=== PATIENT | female | born 1980 | race Caucasian/White ===

== ENCOUNTER 2021-06-15 14:42 | Inpatient (IN) | payer OTHER, SELFPAY ==
[2021-06-15 16:44] VITALS: BP 124/81; PULSE 92; RESP 16; TEMP 36.1; O2SAT 97
--- NOTE | 2021-06-15 17:06 | P.CNHOSGPS_ITS ---
History of Present Illness Data of Consult Service Date: 06/15/21 Requesting physician: [facility] Primary Care Provider: Jacqueline Girard NP HPI Reason for consult: medical H+P 40yo F with no chronic medical conditions admitted to . She denies any history of medical conditions. Not vaccinated against COVID-19. She has absolutely no medical complaints- no fever, chills, chest pain, dyspnea, cough, or headache. PMHx: no chronic conditions PSHx: no surgeries FHx: no cardiac conditions or DM SHx: denies ongoing substance abuse, sober for past 10 yr Review of Systems Review of Systems: Yes all other systems are reviewed and are negative (except psychiatric symptoms) [facility] Social History Household Members: Spouse Housing: House Do you presently have visiting nurse or other home services: No Patient Tobacco Use Status: Never used Tobacco Smoked in Last 30 Days: No e-Cigarette/Vaping Use: Never Used Patient Interested in Nicotine Replacement: No Patient Given Instructions on How to Stop Smoking: No Second Hand Smoke Exposure: No Use of substances other than those prescribed or required for medical reasons: No Currently Displaying Signs/Symptoms of Drug Intoxication Withdrawal: No Any prior treatment program specific to substance use: No Have you been hit, kicked, punched, or otherwise hurt by someone within the past year? If so, by whom?: No Do you feel safe in your current relationship?: Yes Is there a partner from a previous relationship who is making you feel unsafe now?: No Are you made to feel afraid or neglected: No Spiritual Healthcare Practices: I believe in higher power Episcopal Healthcare Practices: christianity Cultural Healthcare Practices: n/a Advance Directives: No Advance Directives Information Provided: No Advance Directives on File: No Do you have thoughts of harming others: None Do you have a plan to hurt others: No Plan Recently lost weight without trying: No Eating poorly because of decreased appetite: No Nutrition Risks: No Nutritional Risk Patient : No : No Poor oral hygiene: No Meds Allergies Allergy/AdvReac Type Severity Reaction Status Date / Time No Known Allergies Allergy Verified 06/15/21 15:36 Active Medications: Current Medications Generic Name Dose Route Start Last Admin Trade Name Freq PRN Reason Stop Dose Admin Acetaminophen 650 mg 06/15/21 15:36 Acetaminophen 325 Mg Tablet PO Q6H PRN Headache/Pain Mild Scale (1-3) Al Hydroxide/Mg Hydroxide 30 ml 06/15/21 15:36 Magnesium Hydrox/Alum Hydrox 30 Ml Oral.Susp PO Q6H PRN Heartburn/Nausea Magnesium Hydroxide 30 ml 06/15/21 15:36 Milk Of Magnesia 30 Ml Oral.Susp PO DAILY PRN Constipation Assessment and Plan (1) Medical history non-contributory: Status: Acute 40yo F admitted to . She has no chronic medical conditions. Thank you for this consult. We are signing off. Please call if any acute medical issues arise. Physical Exam Vital Signs: Last Vital Signs Temp 96.9 F 06/15/21 16:44 Pulse 92 06/15/21 16:44 Resp 16 06/15/21 16:44 BP 124/81 06/15/21 16:44 Pulse Ox 97 06/15/21 16:44 Gen: in no acute distress HEENT: sclera anicteric, moist mucus membranes Neck: supple Lungs: clear to auscultation bilaterally Heart: regular rate and rhythm, no murmurs Abd: soft, non-tender, non-distended Ext: no edema Skin: warm/well-perfused Neuro: alert and oriented x3, no focal findings Psych: appropriate affect Neuro Cranial nerves: Yes CN's II-XII intact bilaterally
--- NOTE | 2021-06-15 18:02 | PC.ADMIT ---
PT. 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 15:15 ON A CV STATUS. PT. IS COVID NEG., UTOX AND ETOH NEG. PT. WAS EVALUATED BY [facility] AFTER BEING MEDICALLY CLEARED ON [facility] TO ARRIVING VIA AMBULANCE ON . PT. INTENTIONALLY INGESTED OVER 100 PILLS OF HER PRESCRIBED MEDICATIONS (WELLBUTRIN, KLONOPIN AND ZOLOFT). DURING ADMISSION ON M 5 PT. WAS ANXIOUS AND TEARFUL, SHE CURRENTLY DENIES SI, PLAN OR INTENT. HER AFFECT WAS FLAT AND DEPRESSED. PT. HAS A HX OF OD ATTEMPS IN HER 22 S. PT. REPORTED AT ADMISSION PROCESS SHE TOOK CARE OF HER NIECE FOR ALMOST 5 YEARS AND NOW THE MOTHER WILL GET THE GIRL BACK. I CAN'T SEE A WAY OF LIFE WITHOUT HER, IT'S THAT DEVASTATING . WHEN SHE WAS ASK HOW SHE FEELS ABOUT SURVIVING THE ATTEMPTED SUICIDE SHE STATED GOOD, BECAUSE I WOULD GO TO HELL . PT. SIGNED ALL CONSENT FORMS, SHE PUT IN A 3 DAY NOTICE THAT WILL BE UP ON 06/20/21. PT. IS A NON SMOKER, SHE HAS BEEN IN ETOH REMISSION SINCE 12/2017. PT. HAD A UNIT TOUR, SHE STATED TO FEEL SAFE. NO MEDICATION ORDERS WERE RECEIVED AT PRESENT TIME.
[2021-06-15 19:59] VITALS: BMI 25.5
[2021-06-15] MEDS: traZODone HCL 50 MG TABLET PO (20:21)
--- NOTE | 2021-06-16 | ECG_ITS ---
Test Reason : overdose Blood Pressure : / mmHG Vent. Rate : 073 BPM Atrial Rate : 073 BPM P-R Int : 104 ms QRS Dur : 076 ms QT Int : 386 ms P-R-T Axes : 014 050 045 degrees QTc Int : 425 ms Sinus rhythm with short ID Otherwise normal ECG No previous ECGs available Referred By: Karuna Desai Electronically Signed By:CRISSY SCHAFFER
[2021-06-16 06:00] VITALS: BP 93/56; PULSE 89; RESP 16; TEMP 35.8; O2SAT 96
[2021-06-16 08:35] LABS: MANUAL DIFF FLAG NO
[2021-06-16 08:39] LABS: Basophils Percent Auto 0.4 % (0-2); Eosinophils Absolute Auto 0.1 X10*3/uL (0.0-0.4); Eosinophils Percent Auto 0.6 % (0-4); Hematocrit 43.7 % (37-47); Hemoglobin 14.6 g/dl (12.0-16.0); Imm Gran Abs Auto 0.04 X10*3/uL (0.00-0.03); Imm Gran Pct Auto 0.5 % (0.0-0.4); Lymphocytes Absolute Auto 1.9 X10*3/uL (1.2-4.9); Lymphocytes Percent Auto 22.3 % (20-40); Mean Corpuscular HGB Conc 33.4 g/dl (31.0-35.0); Mean Corpuscular Hemoglobin 30.5 pg (27.0-33.0); Mean Corpuscular Volume 91.4 fL (80-98); Mean Platelet Volume 9.4 fL (9.4-12.3); Monocytes Absolute Auto 0.6 X10*3/uL (0.1-1.2); Monocytes Percent Auto 6.8 % (2-11); Neutrophils Absolute Auto 5.9 X10*3/uL (2.0-8.3); Neutrophils Percent Auto 69.4 % (45-73); Platelet Count 315 X10*3/uL (160-400); Red Blood Count 4.78 X10*6/uL (4.20-5.50); Red Cell Distribution Width 12.8 % (11.0-16.0); White Blood Count 8.6 X10*3/uL (4.8-10.8)
[2021-06-16 08:56] LABS: Estimated Average Glucose 97 mg/dL
[2021-06-16 09:08] LABS: Alanine Aminotransferase 35 U/L (0-31); Albumin Level 4.7 g/dL (3.5-5.0); Alkaline Phosphatase 95 U/L (39-117); Anion Gap 15 (12-20); Aspartate Amino Transferase 20 U/L (5-31); Bilirubin Total 0.6 mg/dL (0.0-1.0); Blood Urea Nitrogen 14 mg/dL (9-16); Calcium 10.3 mg/dL (8.4-10.2); Carbon Dioxide 27 mmol/L (22-29); Chloride 102 mmol/L (96-108); Cholesterol 262 mg/dL; Creatinine Clr Calc Pharmacy 82.9; Estimated Glomerular Filt Rate > 60; Glucose Fasting 126 mg/dL (60-99); HDL Cholesterol 43 mg/dL; LDL Cholesterol Calculated 176 mg/dl; Potassium 4.9 mmol/L (3.3-5.1); Sodium 139 mmol/L (135-145); Total Protein 7.7 g/dL (6.5-8.0); Triglycerides 217 mg/dL
[2021-06-16 09:30] LABS: Free T4 (Free Thyroxine) 1.05 ng/dL (0.71-1.85); Thyroid Stimulating Hormone 0.78 uIU/mL (0.32-4.0)
[2021-06-16 11:12] LABS: Folate 10.5 ng/mL (> or = 4.0); Vitamin B12 332 pg/mL (200-900)
--- NOTE | 2021-06-16 16:13 | P.HPPS_ITS ---
HPI Chief Complaint: Recurrent major depression, alcohol use d/o, s/p s Sources of Information: patient interviewed, chart reviewed and crisis/core team assessment reviewed HPI Subjective Notes: 3 Day (06/20/21) Healthcare Proxy: No Guardianship: No Medical Problems Affecting Mental Status: No Narrative: 40 yo female s/p OD Wellbutrin, Sertraline, Klonopin with resulting seizures, serotonin syndrome, rhabdomylosis, QTc prolongation admitted medically to [facility] with transfer upon stabilization. Pt signed in on CV then signed TDN. Met with pt. YAN given and initially discussed seriousness of attempt and that we would pursue Section VII/VIII due to the severity of attempt and concern for her safety. She verbalized understanding and reports she is willing to work with the team on current issues. Pt reports main stressor is the loss of custody of her niece (brother's daughter) back to the child's mother. This has been a one year process. Pt has had custody since age 3 months (currently 7yo) and has worked with the courts for the past year, more intensively over the past three months and has been co-parenting with her sister in law. Pt's brother, nieces father was living with pt and and pt recently learned that he was using drugs. In response to that, nieces mother told pt that she would not be allowed to see her niece due to brothers use. She identifies this as the precipitant. Reports an increase in sleep ~7pm-9-10am, no changes in appetite or weight and a history of some hypomanic periods. Since the OD and being off meds, she reports this is the best I have felt in years . Reports having 3 years of sobriety from alcohol. 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 She currently denies SI and states I just want to get back to my , dogs and return to work. She reflects that as she has no children by choice the loss of custoday has meant more to her than she realized and she is experiencing more emotion than she had expected. Past Psychiatric History: IP: Early OP: [facility]-Telehealth Psychopharm with PCP Jacqueline Girard of [facility] Has a med appt scheduled for Aug 2021 with therapists agency SA: Early 's OD ASA, Carl. This was in response to father getting a DUI and charged with vehicular homicide as his friend was killed while he was driving intoxicated. She was needed to take care of fathers affairs and the stress was overwhelming. Reports a long hx of ADHD with Adderall use which was recently discontinued as it began to have an oppositional effect for pt. PHP: [facility]-recent completion. Medical Evaluation Reviewed: Hospitalist [place] Pending [facility] Medical History (Updated 06/17/21 @ 03:03 by Karuna Desai, MUD JACK OPERATOR) Alcohol use disorder, mild, in sustained remission Recurrent major depression-severe Narrative: Hx Migraine headaches Family History: Alcoholism Social History: Two sisters, Cassie 35 who is estranged, Antoenlla 23, a half sister who pt raised and Goyo 30 who is her nieces father. Parents with alcoh olism. Mother currently sober for 3 weeks. Pt describes having to raise Antonella-became parentified and emancipated early with much responsibility at an early age. Pt . sober for 3 years and very supportive. Substance History: Alcohol-long history-sober currently 3 years- pt reports she did not break sobriety [employer] 2018 Trauma History: Affirms Diagnostics Vital Signs (24Hr): Vital Signs - 24 hr 06/15/21 16:44 06/16/21 06:00 Temperature 96.9 F 96.5 F L Pulse Rate 92 89 Respiratory Rate 16 16 Blood Pressure 124/81 93/56 L Pulse Oximetry 97 96 Body Mass Index 25.5 Labs Results: 06/16/21 08:14 06/16/21 08:14 Labs: Laboratory Results - last 48 hr 06/16/21 06/16/21 06/16/21 08:14 08:14 08:14 WBC 8.6 RBC 4.78 Hgb 14.6 Hct 43.7 MCV 91.4 MCH 30.5 MCHC 33.4 RDW 12.8 Plt Count 315 MPV 9.4 Immature Gran % (Auto) 0.5 H Neut % (Auto) 69.4 Lymph % (Auto) 22.3 [place] % (Auto) 6.8 Eos % (Auto) 0.6 Baso % (Auto) 0.4 Lymph # (Auto) 1.9 [place] # (Auto) 0.6 Eos # (Auto) 0.1 Baso # (Auto) 0.0 Abs Immat Gran (auto) 0.04 H Absolute Neuts (auto) 5.9 Absolute Nucleated RBC 0.000 Nucleated RBC % (auto) 0.0 Sodium 139 Potassium 4.9 Chloride 102 Carbon Dioxide 27 Anion Gap 15 BUN 14 Creatinine 0.97 Estim Creat Clear Calc 82.9 Estimated GFR > 60 Fasting Glucose 126 H Estimat Average Glucose 97 Hemoglobin A1c % 5.0 Calcium 10.3 H Magnesium 2.0 Total Bilirubin 0.6 AST 20 ALT 35 H Alkaline Phosphatase 95 Total Protein 7.7 Albumin 4.7 Triglycerides 217 Cholesterol 262 LDL Cholesterol, Calc 176 HDL Cholesterol 43 Vitamin B12 Folate TSH 0.78 Free T4 1.05 06/16/21 08:14 WBC RBC Hgb Hct MCV MCH MCHC RDW Plt Count MPV Immature Gran % (Auto) Neut % (Auto) Lymph % (Auto) [place] % (Auto) Eos % (Auto) Baso % (Auto) Lymph # (Auto) [place] # (Auto) Eos # (Auto) Baso # (Auto) Abs Immat Gran (auto) Absolute Neuts (auto) Absolute Nucleated RBC Nucleated RBC % (auto) Sodium Potassium Chloride Carbon Dioxide Anion Gap BUN Creatinine Estim Creat Clear Calc Estimated GFR Fasting Glucose Estimat Average Glucose Hemoglobin A1c % Calcium Magnesium Total Bilirubin AST ALT Alkaline Phosphatase Total Protein Albumin Triglycerides Cholesterol LDL Cholesterol, Calc HDL Cholesterol Vitamin B12 332 Folate 10.5 TSH Free T4 EKG EKG: reviewed EKG Comment: NSR, Short [place] Meds/Allergies Meds Home Medications Acetaminophen (Acetaminophen 325 Mg Tablet) 650 mg PO Q6H PRN PRN Reason: Headache/Pain Mild Scale (1-3) Al Hydroxide/Mg Hydroxide (Magnesium Hydrox/Alum Hydrox 30 Ml Oral.Susp) 30 ml PO Q6H PRN PRN Reason: Heartburn/Nausea Magnesium Hydroxide (Milk Of Magnesia 30 Ml Oral.Susp) 30 ml PO DAILY PRN PRN Reason: Constipation Trazodone HCl (Trazodone Hcl 50 Mg Tablet) 50 mg PO BEDTIME SANGEETA Last Admin: 06/16/21 20:25 Dose: 50 mg Documented by: Allergies Allergies Allergy/AdvReac Type Severity Reaction Status Date / Time No Known Allergies Allergy Verified 06/15/21 15:36 Mental Status Exam Mental Status Exam Patient Appearance: Appropriate Patient Orientation: Person, Place, Time and Situation Level of Consciousness: Awake and Alert Patient Behavior: Appropriate, Talkative, Cooperative, Restless, Fatigued, Distractible and Good Eye Contact Mood Description: Blunted Affect Description: Blunted Patient Cognition Impaired: No Ability to Follow Directions: Good Speech Pattern: Spontaneous Speech Memory Description: Intact Hallucinations: None Delusions: Not Present Thought Process: Distracted and Goal Oriented Thought Content: positive for [place], positive for Circumstantial, positive for Goal Oriented and positive for Suicidal Ideation (denies) Depressive Symptoms: Difficulty Sleeping, Sleeping More Than Usual, Increased Fatigue, Thoughts of /Suicide (denies), Loss of Energy and Difficulty Concentrating Judgement: Fair Assessment & Plan Assessment & Plan (1) Recurrent major depression-severe: Status: Acute Code(s): F33.2 - Major depressive disorder, recurrent severe without psychotic features (2) Alcohol use disorder, mild, in sustained remission: Status: Acute Code(s): F10.11 - Alcohol abuse, in remission Assessment and Plan: 40 yo female, alcohol use disorder, reports three years of sobriety, s/p significant suicide attempt via od of Wellbutrin, Sertraline, Klonopin with resulting medical complications and medical admit. Pt reports she believes prec ipitant is the loss of custody of her niece to nieces mother which has been planned and brother's recent break in sobriety precipitating nieces mother to deny pt visitation as brother lives with pt. Pt reports needing to take MOE from work due to making mistakes, over sleeping, sx of depression. Describes a significant history of periods of hypomania with increase in energy, activity, decrease need for sleep, dramatic weight loss so we will be ruling out a possible bipolar component to current depressive sx. Plan: Collateral contacts Family meeting with Pt requests her dog Dalia be allowed a visit-will review with administration. Repeat diagnostics Pt to review literature on bipolar disorder Discharge planning Possible trial of mood stabilizer. Pt to consider. Reason for continued inpatient stay Substantial Risk for: harm to self, inability to function and rapid decompensation
[2021-06-16 17:19] VITALS: BP 96/57; PULSE 111; TEMP 36.2
[2021-06-16] MEDS: traZODone HCL 50 MG TABLET PO (20:25)
[2021-06-17 06:00] VITALS: BP 100/56; PULSE 90; RESP 16; TEMP 36.1; O2SAT 97
--- NOTE | 2021-06-17 09:05 | HO.PSYCHPN ---
Subjective Subjective Date of Service: 06/17/21 Reason For Visit: Recurrent major depression, alcohol use d/o, OD Subjective Notes: Conditional Voluntary and 3 Day (retracted) Healthcare Proxy: No Guardianship: No Medical Problems Affecting Mental Status: No Interim History: Plan of care discussed with 1. Mother, Machelle Shipley [phone], She will be coming to live with pt and when pt is discharged to assist and support her as pt cannot drive for six months due to seizure post OD. 2. Father, Camilo Shipley [phone]. 3. , Christiano Cousins [phone], . He expressed concern that [facility] do not have the staff nor ability to treat patients. He was confrontive regarding commitment potential which tw explained. He believes if pt is not allowed to make a choice of who and where she is treated then she will become resentful. He reports he is an expert on pt and commitment takes away effectiveness of treatment. We will meet on 06/20 11am with pt to review plan. Met with pt. Provided literature on bipolar disorder, mood stabilizers. From what she has already read she believes that this may be a more appropriate plan of care. She was initiated on Sertraline to 100 mg and has never had efficacy, with Klonopin and Wellbutrin added she believes sx became worse. Asked pt to review with her and we will continue to discuss in family meeting. Pt would like to begin a Lamictal trial and asks for prn for anxiety. As she is 3 years sober from alcohol we will attempt to avoid benzodiazepines and will trial Seroquel prn for anxiety. She concurs. Medication Compliance: Yes Side effects from medications: No Attending Groups: Yes Review of Systems Acute medical concerns: No Review of Systems: Pt's diagnostics appear to be resolving-LFT's continue with slight elevation. Review of Systems Review of Systems Yes all other systems are reviewed and are negative Psychiatric: Reports anxiety, Reports depression, Reports difficulty concentrating, Reports irritability, Reports mood swings and Reports suicidal ideation (denies currently) Mental Status Exam Mental Status Exam Patient Appearance: Appropriate Patient Orientation: Person, Place, Time and Situation Level of Consciousness: Awake and Alert Patient Behavior: Appropriate, Talkative, Cooperative, Restless, Fatigued, Distractible and Good Eye Contact Mood Description: Anxious Affect Description: Anxious Patient Cognition Impaired: No Ability to Follow Directions: Good Speech Pattern: Spontaneous Speech Memory Description: Intact Hallucinations: None Delusions: Not Present Thought Process: Distracted and Goal Oriented Thought Content: positive for [place], positive for Circum[place], positive for Goal Oriented and positive for Suicidal Ideation (denies) Depressive Symptoms: Increased Anxiety, Difficulty Sleeping, Sleeping More Than Usual, Increased Fatigue, Thoughts of /Suicide (denies), Loss of Energy and Difficulty Concentrating Judgement: Fair Diagnostics Vital Signs (24Hr): Vital Signs - 24 hr 06/16/21 17:19 06/17/21 06:00 Temperature 97.1 F 97 F Pulse Rate 111 H 90 Respiratory Rate 16 Blood Pressure 96/57 L 100/56 L Pulse Oximetry 97 Body Mass Index 25.5 Labs Results: 06/16/21 08:14 06/16/21 08:14 Labs: Laboratory Results - last 48 hr 06/16/21 06/16/21 06/16/21 08:14 08:14 08:14 WBC 8.6 RBC 4.78 Hgb 14.6 Hct 43.7 MCV 91.4 MCH 30.5 MCHC 33.4 RDW 12.8 Plt Count 315 MPV 9.4 Immature Gran % (Auto) 0.5 H Neut % (Auto) 69.4 Lymph % (Auto) 22.3 [place] % (Auto) 6.8 Eos % (Auto) 0.6 Baso % (Auto) 0.4 Lymph # (Auto) 1.9 [place] # (Auto) 0.6 Eos # (Auto) 0.1 Baso # (Auto) 0.0 Abs Immat Gran (auto) 0.04 H Absolute Neuts (auto) 5.9 Absolute Nucleated RBC 0.000 Nucleated RBC % (auto) 0.0 Sodium 139 Potassium 4.9 Chloride 102 Carbon Dioxide 27 Anion Gap 15 BUN 14 Creatinine 0.97 Estim Creat Clear Calc 82.9 Estimated GFR > 60 Fasting Glucose 126 H Estimat Average Glucose 97 Hemoglobin A1c % 5.0 Calcium 10.3 H Magnesium 2.0 Total Bilirubin 0.6 AST 20 ALT 35 H Alkaline Phosphatase 95 Total Protein 7.7 Albumin 4.7 Triglycerides 217 Cholesterol 262 LDL Cholesterol, Calc 176 HDL Cholesterol 43 Vitamin B12 Folate TSH 0.78 Free T4 1.05 06/16/21 08:14 WBC RBC Hgb Hct MCV MCH MCHC RDW Plt Count MPV Immature Gran % (Auto) Neut % (Auto) Lymph % (Auto) [place] % (Auto) Eos % (Auto) Baso % (Auto) Lymph # (Auto) [place] # (Auto) Eos # (Auto) Baso # (Auto) Abs Immat Gran (auto) Absolute Neuts (auto) Absolute Nucleated RBC Nucleated RBC % (auto) Sodium Potassium Chloride Carbon Dioxide Anion Gap BUN Creatinine Estim Creat Clear Calc Estimated GFR Fasting Glucose Estimat Average Glucose Hemoglobin A1c % Calcium Magnesium Total Bilirubin AST ALT Alkaline Phosphatase Total Protein Albumin Triglycerides Cholesterol LDL Cholesterol, Calc HDL Cholesterol Vitamin B12 332 Folate 10.5 TSH Free T4 Medications Medications Current Medications Generic Name Dose Route Start Last Admin Trade Name Freq PRN Reason Stop Dose Admin Acetaminophen 650 mg 06/15/21 15:36 Acetaminophen 325 Mg Tablet PO Q6H PRN Headache/Pain Mild Scale (1-3) Al Hydroxide/Mg Hydroxide 30 ml 06/15/21 15:36 Magnesium Hydrox/Alum Hydrox 30 Ml Oral.Susp PO Q6H PRN Heartburn/Nausea Magnesium Hydroxide 30 ml 06/15/21 15:36 Milk Of Magnesia 30 Ml Oral.Susp PO DAILY PRN Constipation Trazodone HCl 50 mg 06/15/21 21:00 06/16/21 20:25 Trazodone Hcl 50 Mg Tablet PO 50 mg BEDTIME SANGEETA Administration Allergies Allergies Allergy/AdvReac Type Severity Reaction Status Date / Time No Known Allergies Allergy Verified 06/15/21 15:36 Assessment & Plan Assessment & Plan (1) Recurrent major depression-severe: Status: Acute Code(s): F33.2 - Major depressive disorder, recurrent severe without psychotic features (2) Alcohol use disorder, mild, in sustained remission: Status: Acute Code(s): F10.11 - Alcohol abuse, in remission Assessment and Plan: 40 yo female, alcohol use disorder, reports three years of sobriety, s/p significant suicide attempt via od of Wellbutrin, Sertraline, Klonopin with resulting medical complications and medical admit. Pt reports she believes precipitant is the loss of custody of her niece to nieces mother which has been planned and brother's recent break in sobriety precipitating nieces mother to deny pt visitation as brother lives with pt. Pt reports needing to take MOE from work due to making mistakes, over sleeping, sx of depression. Describes a significant history of periods of hypomania with increase in energy, activity, decrease need for sleep, dramatic weight loss so we will be ruling out a possible bipolar component to current depressive sx. Plan: Collateral contacts Family meeting with 06/20/21 Pt to review literature on bipolar disorder Discharge planning Lamictal 25 mg daily Seroquel 25 mg prn anxiety Will try to avoid benzodiazepines due to pt being 3 years sober from alcohol. Initiated discussion of new antidepressant trial when Lamictal is in place. ?Lexapro. Greater than 50% of the session was spent on counseling and/or coordination of care Patient educated on: diagnosis and medication risk/benefits Informed Consent: understands and further education needed Reason for contiued inpatient stay Substantial Risk for: harm to self, inability to function and rapid decompensation
[2021-06-17] MEDS: QUEtiapine Fumarate 25 MG TABLET PO ×2 (14:36→20:23)
[2021-06-17 18:00] VITALS: BP 110/61; PULSE 81; TEMP 36.3
[2021-06-17] MEDS: nitrofurantoin macrocrystaL 50 MG CAPSULE 100 MG PO (20:22)
[2021-06-17] MEDS: lamoTRIgine 25 MG TABLET PO (20:22)
[2021-06-18 06:00] VITALS: BP 89/50; PULSE 65; RESP 16; TEMP 36.7; O2SAT 98
[2021-06-18] MEDS: nitrofurantoin macrocrystaL 50 MG CAPSULE 100 MG PO ×2 (08:41→20:20)
[2021-06-18] MEDS: Acetaminophen 325 MG TABLET 650 MG PO (08:44)
[2021-06-18] MEDS: QUEtiapine Fumarate 25 MG TABLET PO ×3 (08:44→20:25)
--- NOTE | 2021-06-18 10:23 | P.PNPSI_ITS ---
Subjective Subjective Date of Service: 06/18/21 Reason For Visit: Recurrent major depression, alcohol use d/o, OD Interim History: pt seen on 06/18 pt says she's doing much better. and that the medications she's now on seem to be working well; pt reports depression seems to be gone. Pt denies any SI/HI. She asks if there is any chance that investment underwriter will discharge her this weekend, however she accepts that she'll need to discuss this with primary team who already told her that this weekend was premature for discharge. Mental Status Exam Mental Status Exam Patient Appearance: Well Grooomed Patient Orientation: Person, Place, Time and Situation Level of Consciousness: Awake and Appropriate Patient Behavior: Appropriate and Cooperative Mood Description: Calm ( better ) Affect Description: Calm and Appropriate Ability to Follow Directions: Good Speech Pattern: Clear and Appropriate Hallucinations: None Delusions: Not Present Thought Process: Intact, Goal Oriented and Linear Thought Content: positive for Intact (denies SI/HI/AVH) Judgement: Fair Diagnostics Vital Signs (24Hr): Vital Signs - 24 hr 06/17/21 18:00 06/18/21 06:00 Temperature 97.3 F 98.0 F Pulse Rate 81 65 Respiratory Rate 16 Blood Pressure 110/61 89/50 L Pulse Oximetry 98 Body Mass Index 25.5 Labs Results: 06/16/21 08:14 06/16/21 08:14 Labs: Laboratory Results - last 48 hr 06/16/21 08:14 Vitamin B12 332 Folate 10.5 Medications Medications Current Medications Acetaminophen (Acetaminophen 325 Mg Tablet) 650 mg PO Q6H PRN PRN Reason: Headache/Pain Mild Scale (1-3) Last Admin: 06/18/21 08:44 Dose: 650 mg Documented by: Al Hydroxide/Mg Hydroxide (Magnesium Hydrox/Alum Hydrox 30 Ml Oral.Susp) 30 ml PO Q6H PRN PRN Reason: Heartburn/Nausea Lamotrigine (Lamotrigine 25 Mg Tablet) 25 mg PO BEDTIME [facility] Last Admin: 06/17/21 20:22 Dose: 25 mg Documented by: Magnesium Hydroxide (Milk Of Magnesia 30 Ml Oral.Susp) 30 ml PO DAILY PRN PRN Reason: Constipation Nitrofurantoin Macrocrystals (Nitrofurantoin Macrocrystal 50 Mg Capsule) 100 mg PO BID [facility] Stop: 06/22/21 08:00 Last Admin: 06/18/21 08:41 Dose: 100 mg Documented by: Quetiapine Fumarate (Quetiapine Fumarate 25 Mg Tablet) 25 mg PO TID PRN PRN Reason: anxiety Last Admin: 06/18/21 08:44 Dose: 25 mg Documented by: Allergies Allergies Allergy/AdvReac Type Severity Reaction Status Date / Time No Known Allergies Allergy Verified 06/15/21 15:36 Assessment & Plan Assessment & Plan (1) Recurrent major depression-severe: Status: Acute Code(s): F33.2 - Major depressive disorder, recurrent severe without psychotic features (2) Alcohol use disorder, mild, in sustained remission: Status: Acute Code(s): F10.11 - Alcohol abuse, in remission Assessment and Plan: 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 Pt reports she believes precipitant is the loss of custody of her niece to nieces mother which has been planned and brother's recent break in sobriety precipitating nieces mother to deny pt visitation as brother lives with pt. Pt reports needing to take MOE from work due to making mistakes, over sleeping, sx of depression. Describes a significant history of periods of hypomania with increase in energy, activity, decrease need for sleep, dramatic weight loss so we will be ruling out a possible bipolar component to current depressive sx. Plan: Collateral contacts Family meeting with 06/20/21 Pt to review literature on bipolar disorder Discharge planning Lamictal 25 mg daily Seroquel 25 mg prn anxiety Will try to avoid benzodiazepines due to pt being 3 years sober from alcohol. Initiated discussion of new antidepressant trial when Lamictal is in place. ?Lexapro. Greater than 50% of the session was spent on counseling and/or coordination of care Reason for contiued inpatient stay Substantial Risk for: med/psych decompensation
[2021-06-18 17:50] VITALS: BP 114/63; PULSE 81; TEMP 36.1
[2021-06-18] MEDS: lamoTRIgine 25 MG TABLET PO (20:20)
[2021-06-19 06:00] VITALS: BP 108/58; PULSE 77; RESP 18; TEMP 36.6; O2SAT 97
[2021-06-19] MEDS: nitrofurantoin macrocrystaL 50 MG CAPSULE 100 MG PO ×2 (08:20→19:28)
[2021-06-19] MEDS: QUEtiapine Fumarate 25 MG TABLET PO ×2 (13:47→20:52)
[2021-06-19 16:40] VITALS: BP 130/80; PULSE 101; TEMP 36.6
[2021-06-19] MEDS: lamoTRIgine 25 MG TABLET PO (19:28)
--- NOTE | 2021-06-19 20:27 | P.PNPSI_ITS ---
Subjective Subjective Date of Service: 06/19/21 Reason For Visit: Recurrent major depression, alcohol use d/o, OD Interim History: Patient reports she remains in a good mood. She denies SI or hi. She reports her visit with her went well and that he is hoping to discharge soon. She does say she had trouble sleeping but does not want medication for it. Senior Network Systems Engineer broached the topic of patient's recent suicide attempt the patient says she knows and it's big deal. Mental Status Exam Mental Status Exam Narrative: Patient Appearance:?Well Grooomed Patient Orientation:?Person, Place, Time and Situation Level of Consciousness:?Awake and Appropriate Patient Behavior:?Appropriate and Cooperative, calm Mood Description:? good Affect Description:?Calm and Appropriate Ability to Follow Directions:?Good Speech Pattern:?Clear and Appropriate Hallucinations:?None Delusions:?Not Present Thought Process:?Intact, Goal Oriented and Linear Thought Content:?positive for Intact (denies SI/HI/AVH) Judgement:?Fair Diagnostics Vital Signs (24Hr): Vital Signs - 24 hr 06/19/21 06:00 06/19/21 16:40 Temperature 97.9 F 97.8 F Pulse Rate 77 101 H Respiratory Rate 18 Blood Pressure 108/58 L 130/80 Pulse Oximetry 97 Body Mass Index 25.5 Labs Results: 06/16/21 08:14 06/16/21 08:14 Medications Medications Current Medications Acetaminophen (Acetaminophen 325 Mg Tablet) 650 mg PO Q6H PRN PRN Reason: Headache/Pain Mild Scale (1-3) Last Admin: 06/18/21 08:44 Dose: 650 mg Documented by: Al Hydroxide/Mg Hydroxide (Magnesium Hydrox/Alum Hydrox 30 Ml Oral.Susp) 30 ml PO Q6H PRN PRN Reason: Heartburn/Nausea Lamotrigine (Lamotrigine 25 Mg Tablet) 25 mg PO BEDTIME [facility] Last Admin: 06/19/21 19:28 Dose: 25 mg Documented by: Magnesium Hydroxide (Milk Of Magnesia 30 Ml Oral.Susp) 30 ml PO DAILY PRN PRN Reason: Constipation Nitrofurantoin Macrocrystals (Nitrofurantoin Macrocrystal 50 Mg Capsule) 100 mg PO BID [facility] Stop: 06/22/21 08:00 Last Admin: 06/19/21 19:28 Dose: 100 mg Documented by: Quetiapine Fumarate (Quetiapine Fumarate 25 Mg Tablet) 25 mg PO TID PRN PRN Reason: anxiety Last Admin: 06/19/21 13:47 Dose: 25 mg Documented by: Allergies Allergies Allergy/AdvReac Type Severity Reaction Status Date / Time No Known Allergies Allergy Verified 06/15/21 15:36 Assessment & Plan Assessment & Plan (1) Recurrent major depression-severe: Status: Acute Code(s): F33.2 - Major depressive disorder, recurrent severe without psychotic features (2) Alcohol use disorder, mild, in sustained remission: Status: Acute Code(s): F10.11 - Alcohol abuse, in remission Assessment and Plan: 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 Pt reports she believes precipitant is the loss of custody of her niece to nieces mother which has been planned and brother's recent break in sobriety precipitating nieces mother to deny pt visitation as brother lives with pt. Pt reports needing to take MOE from work due to making mistakes, over sleeping, sx of depression. Describes a significant history of periods of hypomania with increase in energy, activity, decrease need for sleep, dramatic weight loss so we will be ruling out a possible bipolar component to current depressive sx. Plan: Collateral contacts Family meeting with 06/20/21 Pt to review literature on bipolar disorder Discharge planning Lamictal 25 mg daily Seroquel 25 mg prn anxiety Will try to avoid benzodiazepines due to pt being 3 years sober from alcohol. Initiated discussion of new antidepressant trial when Lamictal is in place. ?Lexapro. Greater than 50% of the session was spent on counseling and/or coordination of care Reason for contiued inpatient stay Substantial Risk for: other
[2021-06-20 06:40] VITALS: BP 96/52; PULSE 71; TEMP 36.2
[2021-06-20] MEDS: nitrofurantoin macrocrystaL 50 MG CAPSULE 100 MG PO (08:34)
--- NOTE | 2021-06-20 14:25 | P.DS_ITS ---
DS: Providers Provider Date of Service: 06/20/21 Date of admission: 06/15/21 14:42 Date of discharge: 06/20/21 Primary care physician: Jacqueline Girard NP Admitting clinician: Karuna Desai Attending physician on admission: Thom Driscoll Consults: 06/15/21 15:36 Consult to Hospitalist Routine Consulting Provider: Hospitalist Reason For Exam: Transfer admit, s/p OD Wellbutrin,Klonopin, Zoloft 06/16/21 16:51 Consult to Hospitalist Routine Consulting Provider: Hospitalist Reason For Exam: [facility] transfer, s/p OD. reports numbness -arms R/L Attending physician on discharge: Thom Driscoll Discharging clinician: Karuna Desai DS: Diagnosis Discharge Diagnosis (1) Recurrent major depression-severe: Status: Acute (2) Alcohol use disorder, mild, in sustained remission: Status: Acute DS: Medications Discharge Medications Home Medications: Previous Rx's Medication Instructions Recorded lamotrigine 25 mg tablet 25 mg PO BEDTIME #15 tab 06/20/21 lamotrigine 25 mg tablet (Lamictal) 25 mg PO DAILY 14 Days #14 tab 06/20/21 Mental Status Exam Mental Status Exam Patient Appearance: Appropriate Patient Orientation: Person, Place, Time and Situation Level of Consciousness: Alert Patient Behavior: Appropriate, Talkative, Cooperative and Good Eye Contact Mood Description: Calm, Happy and Appropriate Affect Description: Calm Patient Cognition Impaired: No Ability to Follow Directions: Good Speech Pattern: Spontaneous Speech Memory Description: Intact Hallucinations: None Delusions: Not Present Thought Process: Intact and Goal Oriented Thought Content: positive for Intact, positive for Goal Oriented and positive for Suicidal Ideation (denies SI plan or intent) Depressive Symptoms: Thoughts of /Suicide (denies SI plan or intent) Judgement: Good Data Data Completed and Pending Completed studies during hospitalization [Text1]: 06/16/21 06/16/21 06/16/21 08:14 08:14 08:14 WBC 8.6 RBC 4.78 Hgb 14.6 Hct 43.7 MCV 91.4 MCH 30.5 MCHC 33.4 RDW 12.8 Plt Count 315 MPV 9.4 Immature Gran % (Auto) 0.5 H Neut % (Auto) 69.4 Lymph % (Auto) 22.3 Schleicher % (Auto) 6.8 Eos % (Auto) 0.6 Baso % (Auto) 0.4 Lymph # (Auto) 1.9 Schleicher # (Auto) 0.6 Eos # (Auto) 0.1 Baso # (Auto) 0.0 Abs Immat Gran (auto) 0.04 H Absolute Neuts (auto) 5.9 Absolute Nucleated RBC 0.000 Nucleated RBC % (auto) 0.0 Sodium 139 Potassium 4.9 Chloride 102 Carbon Dioxide 27 Anion Gap 15 BUN 14 Creatinine 0.97 Estim Creat Clear Calc 82.9 Estimated GFR > 60 Fasting Glucose 126 H Estimat Average Glucose 97 Hemoglobin A1c % 5.0 Calcium 10.3 H Magnesium 2.0 Total Bilirubin 0.6 AST 20 ALT 35 H Alkaline Phosphatase 95 Total Protein 7.7 Albumin 4.7 Triglycerides 217 Cholesterol 262 LDL Cholesterol, Calc 176 HDL Cholesterol 43 Vitamin B12 Folate TSH 0.78 Free T4 1.05 06/16/21 08:14 WBC RBC Hgb Hct MCV MCH MCHC RDW Plt Count MPV Immature Gran % (Auto) Neut % (Auto) Lymph % (Auto) Schleicher % (Auto) Eos % (Auto) Baso % (Auto) Lymph # (Auto) Schleicher # (Auto) Eos # (Auto) Baso # (Auto) Abs Immat Gran (auto) Absolute Neuts (auto) Absolute Nucleated RBC Nucleated RBC % (auto) Sodium Potassium Chloride Carbon Dioxide Anion Gap BUN Creatinine Estim Creat Clear Calc Estimated GFR Fasting Glucose Estimat Average Glucose Hemoglobin A1c % Calcium Magnesium Total Bilirubin AST ALT Alkaline Phosphatase Total Protein Albumin Triglycerides Cholesterol LDL Cholesterol, Calc HDL Cholesterol Vitamin B12 332 Folate 10.5 TSH Free T4 DS: Summary Hospital Course Hospital Course: 40 yo female, transfer from [facility], s/p OD of Klonopin, Sertraline, Wellbutrin with resulting medical issues. Pt reports this was a suicide attempt as she had recently transferred custody of her niece over to niece's mother, which was a planned activity with the courts for the past year. In reflection, she reports she was not ready for this and did not want to lose her niece, but did not spend enough time processing this impending loss. She was medically stable upon adm ission. Pt initially signed a conditional voluntary, then a three day notice of intent to leave. Discussed with pt due to the significance of her overdose with medical issues we would pursue guidance from the court regarding civil commitment. She did decide to retract and work with the team. Pt attended groups, discussed precipitants and symptoms with the team, and worked with the team in discussing the possibility of a bipolar II component to her depressive symptoms We initiated Lamictal 25 mg daily. We discussed her care with her , who attended a family meeting, has connections with mental health professionals and prefers she be treated in [facility] as he reports his research has found that mental health treatment in [facility] is inadequate. Her believes that chaotic family of origin dynamics have caused stress and he will be monitoring these to support her Her care was also discussed individually with both parents at their request who are available to support her and provide for her needs during recovery. Pt will return to her therapist and PCP for ongoing care. PCP will cover medication management until she has a psychiatry appointment in Aug 2021 for assessment for ongoing psychopharmacology. Time spent discussing smoking cessation with patient: 3 to 10 minutes Status at Discharge Cognitive/behavioral status at discharge: alert, oriented, euthymic, reports that she is better that he has seen her in years, pt concurs, denies SI plan or intent, no symptoms of psychosis Functional status at discharge: independent ambulation Overall status at discharge: patient is progressing back to baseline Time Spent with Patient Time attestation: Total time spent providing and/or coordinating discharge services: 40 Time spent: Greater than 30 minutes Discharge Plan Discharge Anticipated Discharge Date/Time: 06/20/21 17:32 Patient Disposition: Home, Self-Care Discharge Diagnosis: Recurrent major depression, severe. Rule Out Bipolar Disorder, Type II Alcohol Use Disorder, in sustained remission Referrals: [facility] Phoebe Allen (therapists) [Other] - 06/27/21 1:00 pm (Appointment scheduled for Sunday, June 27, 2021 @ 1 PM telehealth.) [facility] Psychiatrists Dr. Noa Grider [Other] - 08/10/21 8:00 am (Initial appointment scheduled for August 10, 2021 @ 8:00 AM telehealth.) [facility] Crisis Team [Other] - 1 Week (Please call crisis team 23/04 for phone support as needed or to request mobile assessment or mental health support.) Jacqueline Girard, KEN [Primary Care Provider] - 06/27/21 2:00 pm (IN OFFICE ) Discharge Medications: New lamotrigine 25 mg Tablet 25 mg PO BEDTIME Qty: 15 RF: 1 lamotrigine [Lamictal] 25 mg tablet 25 mg PO DAILY 14 Days Qty: 14 RF: 1 Discontinued clonazepam 0.5 mg tablet 1 tab PO TID PRN (Reason: anxiety) RF: 0 sertraline 100 mg tablet 1 tab PO DAILY RF: 0 bupropion HCl 300 mg tablet extended release 24 hr 1 tab PO DAILY RF: 0 Discharge Orders: Discharge Order (Routine); Ordered 06/20/21 Ordered By: Karuna Desai Diet: advance to usual diet Activity on Discharge: As tolerated Stand Alone Forms: Patient Portal Discharge page, Community Support Care Plan Goals: Mood Stabilization Ongoing sobriety Health Concerns: Recurrent Major Depression, Severe R/O Bipolar Disorder, Type II Plan of Treatment: Attend all scheduled appointments Take Lamictal as directed If needed, CRISIS TEAM may be reached at [phone] Assessment: non-suicidal, non-psychotic, agrees with plan of care. and parents are very supportive and are available for pt as needed. Patient Instructions: Lamotrigine (By mouth) Discharge Date/Time: 06/20/21 14:40
== END 2021-06-20 14:40 | disposition home or self-care (01) | DRG 751 ==
PROVIDERS: Admitting Provider Psychiatry & Neurology Psychiatry; PCP Registered Nurse; Visit Provider Clinical Nurse Specialist Psychiatric/Mental Health, Adult
DX: F33.2 Major depressive disorder, recurrent severe without psychotic features (principal); R45.851 Suicidal ideations; Z91.5 Personal history of self-harm; F10.11 Alcohol abuse, in remission; Z79.899 Other long term (current) drug therapy
CPT/HCPCS: 36415; 80053; 80061; 82607; 82746; 83036; 83735; 84439; 84443; 85025; 93005